=== PATIENT | female | born 1960 | race Caucasian/White ===

== ENCOUNTER 2019-08-11 16:08 | Emergency (ER) | payer BC, SELFPAY ==
[2019-08-11 16:09] VITALS: BP 148/68; PULSE 108; RESP 16; TEMP 36.9; O2SAT 97; BMI 34.7
[2019-08-11 16:23] VITALS: BP 135/80; PULSE 95; RESP 14; TEMP 36.9; O2SAT 98
--- NOTE | 2019-08-11 16:50 | ED.DCSUM_ITS ---
History of Present Illness Chief Complaint: Nausea/Vomiting Informant: Patient - Abdominal Pain/Flank Pain Onset: Days 01-22 Context: Gradual Onset Timing: Continuous Quality: - - no pain Current Severity: Moderate Maximum Severity: Moderate Worsened by: Food Relieved by: Nothing - Nausea/Vomiting/Emesis GI Symptom: Nausea, Vomiting Onset: Days 12-21 Quality: Nonbilious. Negative for: Blood streaks, Coffee ground, Hematemesis Severity: Moderate - Diarrhea/Melena/Hematochezia GI Symptom: Negative for: Diarrhea, Melena, Hematochezia Associated Symptoms: - - decreased UOP. Negative for: Dysuria, Frequency, Hematuria, Urgency Narrative: Had subjective fever on the first day of the illness, as well as a cough productive of occasional brown nonbloody sputum. No fever since. States she has been feeling very nauseated and vomiting mostly dry heaving, decreased appetite and oral intake and feeling very malaised. No recent travel. No recent antibiotics or other prescriptions. - Past Medical History (1) Hypertension Status: Chronic (2) Vitamin D deficiency Status: Chronic Past Medical History - Allergies and Home Meds Allergies/Adverse Reactions: Allergies No Known Allergies Allergy (Verified 08/11/19 16:10) Primary Care Physician: Care Physician,No Primary [Primary Care Provider] - Lives: Spouse/ Significant Other Smoking Status: Former smoker Alcohol: None Review of Systems General: Reports: Fever, Malaise, Subjective. Denies: Sweats Eyes: Denies: Visual changes - bilaterally, Diplopia ENT: Denies: Rhinorrhea, Sore throat Cardiovascular: Denies: Chest pain, Palpitations Respiratory: Reports: Cough, Sputum. Denies: Dyspnea, Dyspnea on exertion, Orthopnea Gastrointestinal: Reports: Nausea, Vomiting. Denies: Abdominal pain, Diarrhea, Constipation, Melena, Hematochezia Genitourinary: Denies: Dysuria, Hematuria, Frequency Musculoskeletal: Denies: Neck pain, Back pain, Swelling, Extremity Pain Skin: Denies: Rash, Wounds Neurological: Denies: Headache, Weakness, Numbness Physical Exam Vital Signs/Narrative: Vital Signs Temp Pulse Resp BP Pulse Ox 08/11/19 16:23 98.5 F 95 14 135/80 H 98 08/11/19 16:09 98.5 F 108 H 16 148/68 H 97 Inital Vital Signs reviewed: Yes General: Well nourished, Well developed, No Acute Distress Head: Normocephalic, Atraumatic Eyes: Perrl, EOMI ENT: Moist mucous membranes, No rhinorrhea Neck: Supple, Nontender, No lymphadenopathy, No JVD Cardiovascular: Regular rate, Regular rhythm, No murmurs, Normal S1, Normal S2, Tachycardia Respiratory: No distress, CTA bilaterally, Chest nontender Abdomen: Soft, Nontender, Nondistended, Normal bowel sounds Back: Nontender, Normal Inspection. Negative for: CVA tenderness Extremities: Nontender, No edema Skin: Normal color, No rash, No Trauma Neurological: Alert, Oriented x3, Cranial nerves II-XII grossly intact, Normal Strength, Normal Sensation Psychological: Normal affect, Normal Mood Diagnostic/Tx/Re-eval Impressions Chest X-Ray 08/11/19 17:12 IMPRESSION: Cardiomegaly with hyperexpansion. Right lower lobe pneumonia. Electronically Signed: Patrice Allen MD at 17:29 EST , Service support , 08/11/19 17:12 Chest PA and Lateral [RAD] Stat Laboratory Results 08/11/19 08/11/19 17:05 17:05 WBC 19.7 H RBC 3.96 L Hgb 10.7 L Hct 32.6 L MCV 82.3 MCH 27.0 MCHC 32.8 RDW Std Deviation 39.6 RDW Coeff of Lonny 13.1 Plt Count 367 MPV 8.8 Immature Gran % (Auto) 0.700 Neut % (Auto) 84.6 H Lymph % (Auto) 9.3 L [place] % (Auto) 5.1 Eos % (Auto) 0.1 Baso % (Auto) 0.2 Absolute Neuts (auto) 16.7 H Absolute Lymphs (auto) 1.83 Nucleated RBC % 0 Sodium 136 Potassium 3.3 L Chloride 103 Carbon Dioxide 25.0 Anion Gap 8 BUN 11 Creatinine 0.65 Estim Creat Clear Calc 75.52 Est GFR (MDRD) Af Amer 120 Est GFR (MDRD) Non-Af 99 BUN/Creatinine Ratio 16.9 Glucose 97 Calcium 9.2 Total Bilirubin 1.00 AST 15 ALT 21 Alkaline Phosphatase 74 Total Protein 7.9 Albumin 3.2 Globulin 4.7 H Albumin/Globulin Ratio 0.7 L Lipase 65 L - Medical Decision Making Patient has a significant leukocytosis of 19.7, slightly low potassium which could be mild acute respiratory alkalosis with shift toward due to loss from the dry heaving/vomiting. Her x-ray shows right lower lobe pneumonia. I suspect this is probably causing her abdominal symptoms given the fact that her abdomen is very benign on exam. With IV fluids and Zofran, her nausea is gone, she still has malaise but otherwise feels better. She is not dyspneic, has no hy poxemia, and her vital signs are unremarkable, stable. Her curb-65 score is 0, and her port score places her in class II. Both of these support outpatient treatment for pneumonia. She was offered admission and declines and does prefer to go home. She was given Levaquin here and a prescription for the rest as well as some Zofran and advised to follow-up with her doctor for reevaluation. She is comfortable with this overall plan. ED Disposition - Plan for ED Patient: Disposition: Home or Assisted Living Diagnosis: CAP (community acquired pneumonia), Hypokalemia due to excessive gastrointestinal loss of potassium Instructions: PNEUMONIA (Adult), Hypokalemia Prescriptions: proMETHazine tablet [Phenergan] 25 mg PO Q6H PRN PRN #10 tab PRN Reason: Nausea Transmission Status: Pending to [id number] Ondansetron [Zofran] 8 mg PO Q8H PRN PRN #12 tab PRN Reason: Nausea Transmission Status: Pending to [id number] Referrals: Doctor,Your [STAFF PHYSICIAN] - 3-5 Days
[2019-08-11] MEDS: Ondansetron 4 MG/2 ML Vial IV (17:07)
[2019-08-11] MEDS: 0.9% Normal Saline 1,000 ML 1000 ML IV (17:08)
--- NOTE | 2019-08-11 17:12 | RAD_ITS ---
STUDY: X-RAY CHEST REASON FOR EXAM: Female, 58 years old. Cough. Vomiting. TECHNIQUE: Frontal and lateral views of the chest. COMPARISON: None. FINDINGS: Hyperexpansion. Patchy opacity at right base compatible with pneumonia. There is no demonstrated pleural abnormality. Borderline cardiomegaly. Normal mediastinum and olivier. Normal visualized pulmonary arteries. Normal visualized aortic arch and descending thoracic aorta. Normal visualized thoracic spine. Normal visualized ribs, clavicles, and shoulders. There is no demonstrated abnormality of the visualized soft tissue structures of the upper abdomen. RAD/Chest PA and Lateral IMPRESSION: Cardiomegaly with hyperexpansion. Right lower lobe pneumonia. Electronically Signed: Patrice Allen MD at 17:29 EST , Service support ,
[2019-08-11 17:15] LABS: Absolute Lymphocyte Count 1.83 X10^3/uL (0.83-4.51); Absolute Neutrophil Count 16.7 X10^3/uL (2.0-7.7); Basophil# 0.03 X10^3/uL; Basophil% 0.2 % (0-1); Eosinophil# 0.01 X10^3/uL; Eosinophils% 0.1 % (0-5); Hematocrit 32.6 % (37-47); Hemoglobin 10.7 g/dL (12.0-15.0); Lymphocyte # 1.83 X10^3/ul (4.0); Lymphocyte % 9.3 % (19-41); Mean Corp Hgb Conc 32.8 g/dL (32-36); Mean Corpuscular Volume 82.3 fL (81-99); Mean Platelet Vol. 8.8 fl (6.2-12.0); Monocyte% 5.1 % (0-10); NRBC Flagged by Analyzer 0 % (0-5); Neutrophil # 16.74 X10^3/uL (2.7-7.7); Neutrophil % 84.6 % (47-70); Platelet Count 367 K/mm3 (150-450); RBC Distribution Width CV 13.1 % (11.6-14.6); RBC Distribution Width SD 39.6 fl (35.1-43.9); Red Blood Count 3.96 M/mm3 (4.2-5.4); White Blood Count 19.7 K/mm3 (4.4-11.0)
[2019-08-11 17:32] LABS: ALB/GLOB Ratio 0.7 RATIO (0.9-2.4); AST(SGOT) 15 U/L (15-37); Alanine Aminotransfer ALT/SGPT 21 U/L (13-56); Albumin, Serum 3.2 g/dL (3.2-5.0); Alkaline Phosphatase 74 U/L (45-117); Anion Gap 8 (5-15); BUN 11 mg/dL (7-18); BUN/Creat Ratio 16.9 RATIO (10-20); Calcium,Total 9.2 mg/dL (8.5-10.1); Chloride 103 mmol/L (98-107); Creatinine, Serum 0.65 mg/dL (0.55-1.02); EST Glomerular Filtration Rate 99 mL/min (>60); Est Glom Filt Rate - Afr Amer 120 mL/min (>60); Estimated Creatinine Clearance 75.52 ml/min; Globulin 4.7 g/dL (2.2-4.2); Glucose 97 mg/dL (74-106); Lipase 65 U/L (73-393); Potassium 3.3 mmol/L (3.5-5.1); Protein, Total 7.9 g/dL (6.4-8.2); Sodium Level 136 mmol/L (136-145)
[2019-08-11 17:49] VITALS: BP 129/70; PULSE 92; RESP 14; TEMP 36.6; O2SAT 97
[2019-08-11 19:02] VITALS: BP 136/70; PULSE 90; RESP 16; TEMP 32.2; O2SAT 98
[2019-08-11] MEDS: levoFLOXacin 750 MG Tablet PO (19:30)
[2019-08-11 19:34] VITALS: BP 141/70; PULSE 90; RESP 14; O2SAT 98
== END 2019-08-11 19:35 | disposition home or self-care (01) ==
PROVIDERS: Emergency Provider Emergency Medicine
DX: J18.9 Pneumonia, unspecified organism (principal); E87.6 Hypokalemia; I10 Essential (primary) hypertension; Z87.891 Personal history of nicotine dependence
CPT/HCPCS: 71046; 80053; 83690; 85025; 96361; 96374; 99285; J7030; A4216; J2405

== ENCOUNTER 2024-10-13 07:15 | Emergency (ER) | payer BC, SELFPAY ==
[2024-10-13 07:16] VITALS: BP 174/75; PULSE 113; RESP 20; TEMP 36.6; O2SAT 94; BMI 36.6
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
[2024-10-13] MEDS: Ondansetron 4 MG/2 ML Vial IV (07:47)
[2024-10-13] MEDS: 0.9% Normal Saline (1000mL) 1,000 ML 999 ML IV (07:47)
[2024-10-13 08:00] LABS: Absolute Lymphocyte Count 2.79 X10^3/uL (0.83-4.51); Absolute Neutrophil Count 8.2 X10^3/uL (2.0-7.7); Basophil# 0.06 X10^3/uL; Basophil% 0.5 % (0-1); Eosinophil# 0.18 X10^3/uL; Eosinophils% 1.5 % (0-5); Hematocrit 37.8 % (37-47); Hemoglobin 11.9 g/dL (12.0-15.0); Lymphocyte # 2.79 X10^3/ul (0.83-4.51); Mean Corp Hgb Conc 31.5 g/dL (32-36); Mean Corpuscular Hgb 26.5 pg (27.0-32.0); Mean Corpuscular Volume 84.2 fL (81-99); Mean Platelet Vol. 8.7 fl (6.2-12.0); Monocyte# 0.85 X10^3/uL; NRBC Flagged by Analyzer 0 % (0-5); Neutrophil # 8.15 X10^3/uL (2.7-7.7); Neutrophil % 67.3 % (47-70); Platelet Count 594 K/mm3 (150-450); RBC Distribution Width CV 13.7 % (11.6-14.6); RBC Distribution Width SD 42.1 fl (35.1-43.9); Red Blood Count 4.49 M/mm3 (4.2-5.4); White Blood Count 12.1 K/mm3 (4.4-11.0)
[2024-10-13 08:26] LABS: Troponin T High Sensitivity 14 ng/L (<=14)
[2024-10-13 08:32] LABS: International Normalized Ratio 0.9; Prothrombin Time (Protime)PT. 11.9 SECONDS (11.7-14.9)
[2024-10-13 08:33] LABS: Partial Thromboplast Time 24.4 Seconds (24.1-36.2)
[2024-10-13 09:15] VITALS: BP 171/80
[2024-10-13 09:42] LABS: AST(SGOT) 36 U/L (<=31); Alanine Aminotransfer ALT/SGPT 29 U/L (<=34); Albumin, Serum 4.2 g/dL (3.4-4.8); Alkaline Phosphatase 105 U/L (35-104); Anion Gap 15 (5-15); BUN 21 mg/dL (4-19); BUN/Creat Ratio 30.1 RATIO (10-20); Bilirubin, Direct 0.11 mg/dL (0.00-0.30); Calcium 9.5 mg/dL (7.6-11.0); Carbon Dioxide 22.6 mmol/L (22.0-29.0); Chloride 101 mmol/L (96-108); Creatinine, Serum 0.7 mg/dL (0.6-1.0); EST Glomerular Filtration Rate 98 (>60); Estimated Creatinine Clearance 80.69 ml/min; Globulin 3.3 g/dL (2.2-4.2); Glucose 134 mg/dL (70-99); Potassium 4.1 mmol/L (3.3-5.1); Protein, Total 7.5 g/dL (5.9-8.4); Sodium Level 138 mmol/L (133-145); Total Bilirubin 0.27 mg/dL (0.00-1.30)
[2024-10-13 10:24] VITALS: BP 171/80; PULSE 86; RESP 16; TEMP 36.6; O2SAT 95
== END 2024-10-13 10:29 | disposition home or self-care (01) ==
PROVIDERS: Emergency Provider Emergency Medicine; PCP Family Medicine; Visit Provider Emergency Medicine
DX: R07.89 Other chest pain (principal); V43.52XA Car driver injured in collision with other type car in traffic accident, initial encounter; I10 Essential (primary) hypertension; R11.0 Nausea; I44.7 Left bundle-branch block, unspecified; Z87.891 Personal history of nicotine dependence
CPT/HCPCS: 70450; 71260; 72125; 74177; 80048; 80076; 84484; 85025; 85610; 85730; 93005; 96361; 96374; 99284; Q9967; J2405